=== PATIENT | female | born 1980 | race Caucasian/White ===

== ENCOUNTER 2018-12-17 08:39 | Emergency (ER) | payer BC ==
[2018-12-17] MEDS ORDERED: Ondansetron INJ* 2 MG/ML VIAL IV ONE (09:27)
[2018-12-17] MEDS ORDERED: NS 0.9% 1000 ML** 1,000 ML IV ONE (09:27)
[2018-12-17] MEDS ORDERED: Morphine VIAL* 10 MG/ML 1 ML VIAL IV ONE (09:27)
[2018-12-17] MEDS ORDERED: Ketorolac INJ* 30 MG/ML 1 ML VIAL IV PUSH ONE (09:27)
[2018-12-17 10:19] LABS: INR 0.86 (0.77-1.02)
[2018-12-17 11:01] LABS: ABS Basophils 0 10^3/ul (0-0.2); ABS Eosinophils 0 10^3/ul (0-0.6); ABS Monocytes 0.3 10^3/ul (0-0.8); ABS Neutrophils 11.7 10^3/ul (1.5-7.7); ABS Nucleated RBC 0 10^3/ul; Eosinophil % 0 %; Hematocrit 43 % (35-47); Hemoglobin 14.8 g/dl (12.0-16.0); Lymphocyte % 7.6 %; Mean Corpuscular HGB Conc 34 g/dl (31-36); Mean Corpuscular Hemoglobin 29 pg (27-31); Mean Corpuscular Volume 85 fL (80-97); Mean Platelet Volume 7.4 fL (7.4-10.4); Nucleated Red Blood Cells % 0; Platelet Count 235 10^3/ul (150-450); Red Blood Count 5.04 10^6/ul (4.00-5.40); Red Cell Distribution Width 14 % (10.5-15); White Blood Count 13.1 10^3/ul (3.5-10.8)
--- NOTE | 2018-12-17 11:19 | ED ---
Abdominal Pain/Female - HPI Summary HPI Summary: patient is an otherwise healthy 38-year-old female presenting to the ED with right-sided flank pain radiating to the right groin. This is associated with nausea and vomiting. Acute onset of symptoms early this morning and of remain persistent. She states the pain is 9/10, constant and cramping. She states she is unable to get a comfortable position. She has tried heat and Tylenol at home without good relief. She states she is also very dehydrated from several emesis episodes this morning. She denies any diarrhea or constipation. Denies abdominal surgical history. Patient is otherwise healthy, takes no medications , however has multiple allergies. She denies any urinary symptoms, specifically frequency, urgency or obstructive symptoms. Denies any gross hematuria. - History of Current Complaint Chief Complaint: EDAbdPain Stated Complaint: RIGHT SIDE ABD PAIN Time Seen by Provider: 12/17/18 09:06 Hx Obtained From: Patient ?: No Onset/Duration: Sudden Onset Timing: Constant Severity Initially: Severe Severity Currently: Severe Pain Intensity: 6 Pain Scale Used: 0-10 Numeric Location: Flank Radiates: No Character: Cramping, Colicy Aggravating Factor(s): Nothing Alleviating Factor(s): Nothing Associated Signs and Symptoms: Positive: Back Pain - Right-sided flank, Nausea. Negative: Fever, Cough, Blood in Stool, Urinary Symptoms, Vaginal Discharge, Vomiting - Risk Factors Ectopic Risk Factor: Negative Ovarian Torsion Risk Factor: Negative Allergies/Adverse Reactions: Allergies Allergy/AdvReac Type Severity Reaction Status Date / Time ampicillin Allergy Rash Verified 12/17/18 08:45 cefaclor [From Ceclor] Allergy GI Upset Verified 12/17/18 08:45 erythromycin base Allergy Rash Verified 12/17/18 08:45 [From Erythrocin] latex Allergy Rash Verified 12/17/18 08:45 sulfamethoxazole Allergy Rash Verified 12/17/18 08:45 [From Bactrim] trimethoprim [From Bactrim] Allergy Rash Verified 12/17/18 08:45 [facility] Allergy STOMACH Uncoded 10/10/12 12:37 PMH/Surg Hx/FS Hx/Imm Hx Previously Healthy: Yes Cardiovascular History: Denies: Hx Pacemaker/ICD Respiratory History: Reports: Hx Asthma Sensory History: Denies: Hx Hearing Aid Psychiatric History: Denies: Hx Panic Disorder - Cancer History Hx Chemotherapy: No Hx Radiation Therapy: No - Surgical History Surgery Procedure, Year, and Place: APPENDECTOMY- 1992; LAPARSCOPIC- ENDOMETRIOSIS - Immunization History Hx Pertussis Vaccination: No Immunizations Up to Date: Yes Infectious Disease History: No Infectious Disease History: Denies: Traveled Outside the [place] in Last 30 Days - Social History Occupation: Employed Full-time Lives: With Family Alcohol Use: Rare Hx Substance Use: No Substance Use Type: Reports: None Hx Tobacco Use: No Smoking Status (MU): Never Smoked Tobacco Review of Systems Negative: Fever, Chills, Fatigue, Skin Diaphoresis Negative: Palpitations, Chest Pain Negative: Shortness Of Breath, Cough Positive: Abdominal Pain, Vomiting, Nausea. Negative: Diarrhea Genitourinary: Negative Positive: no symptoms reported, see HPI Musculoskeletal: Negative Skin: Negative All Other Systems Reviewed And Are Negative: Yes Physical Exam Triage Information Reviewed: Yes Vital Signs On Initial Exam: Initial Vitals Temp Pulse Resp BP Pulse Ox 97.8 F 49 16 155/107 100 12/17/18 08:41 12/17/18 08:41 12/17/18 08:41 12/17/18 08:41 12/17/18 08:41 Vital Signs Reviewed: Yes Appearance: Positive: Pain Distress Skin: Positive: Warm, Skin Color Reflects Adequate Perfusion Head/Face: Positive: Normal Head/Face Inspection Eyes: Positive: EOMI, MILLICENT, Conjunctiva Clear Neck: Positive: Supple, No Lymphadenopathy Respiratory/Lung Sounds: Positive: Clear to Auscultation, Breath Sounds Present Cardiovascular: Positive: RRR, Pulses are Symmetrical in both Upper and Lower Extremities Abdomen Description: Positive: Soft, CVA Tenderness (R). Negative: CVA Tenderness (L), Guarding, McBurney's Point Tenderness, Peritoneal Signs, Pulsatile Mass, Splenomegaly Musculoskeletal: Positive: Normal, Strength/ROM Intact Neurological: Positive: Alert, Oriented to Person Place, Time Psychiatric: Positive: Normal, Affect/Mood Appropriate AVPU Assessment: Alert Diagnostics - Vital Signs Vital Signs Temp Pulse Resp BP Pulse Ox 12/17/18 09:38 22 12/17/18 08:41 97.8 F 49 16 155/107 100 - Laboratory Lab Results: Lab Results 12/17/18 12/17/18 Range/Units 08:55 10:53 WBC 13.1 H (3.5-10.8) 10^3/ul RBC 5.04 (4.00-5.40) 10^6/ul Hgb 14.8 (12.0-16.0) g/dl Hct 43 (35-47) % MCV 85 (80-97) fL MCH 29 (27-31) pg MCHC 34 (31-36) g/dl RDW 14 (10.5-15) % Plt Count 235 (150-450) 10^3/ul MPV 7.4 (7.4-10.4) fL Neut % (Auto) 89.7 % Lymph % (Auto) 7.6 % [place] % (Auto) 2.5 % Eos % (Auto) 0 % Baso % (Auto) 0.2 % Absolute Neuts (auto) 11.7 H (1.5-7.7) 10^3/ul Absolute Lymphs (auto) 1.0 (1.0-4.8) 10^3/ul Absolute Monos (auto) 0.3 (0-0.8) 10^3/ul Absolute Eos (auto) 0 (0-0.6) 10^3/ul Absolute Basos (auto) 0 (0-0.2) 10^3/ul Absolute Nucleated RBC 0 10^3/ul Nucleated RBC % 0 INR (Anticoag Therapy) 0.86 (0.77-1.02) Result Diagrams: 12/17/18 10:53 12/17/18 10:53 Lab Statement: Any lab studies that have been ordered have been reviewed, and results considered in the medical decision making process. Abdominal Pain Fem Course/Dx - Course Course Of Treatment: During this course of treatment, the patient is evaluated for likely right-sided kidney stone. CT obtained which shows a 0.2 cm right- sided stone with hydronephrosis at the UVJ. She is given Toradol, morphine and Zofran with good relief. Urine obtained. No obvious infection. She will be discharged with urine strainer, Zofran and Natoma. she will follow up with urology if symptoms persist or worsen. She is to return to the ED if she does not pass a stone or any symptoms get worse. She understands return precautions. She is okay for discharge at this time. - Diagnoses Differential Diagnosis: Positive: Renal Colic, Urinary Tract Infection Provider Diagnoses: Nephrolithiasis Discharge - Sign-Out/Discharge Documenting (check all that apply): Patient Departure - Discharge Plan Condition: Stable Disposition: HOME Prescriptions: HYDROcodone/ACETAMIN 5-325 MG* [Natoma 5-325 TAB*] 1 tab PO Q6H PRN #12 tab MDD 8 PRN Reason: Pain Ondansetron ODT TAB* [Zofran 4 MG Odt TAB*] 4 mg PO Q6H PRN #12 tab.odt MDD 4 PRN Reason: Nausea Patient Education Materials: Kidney Stones (ED), How to Strain Your Urine (ED) Referrals: Malick Lopez MD [Primary Care Provider] - Alexx Haddad MD [Medical Doctor] - Additional Instructions: If you develop any worsening symptoms, please return to the ED or follow-up with urology Please strain your urine, this will sure you have passed the stone Stone is passed when you no longer feel discomfort I have given your pain medication for at home for relief You may take ibuprofen 600ng 3 times daily in addition to the pain control Heat to the area may help with some discomfort I have also given you nausea medication - Billing Disposition and Condition Condition: STABLE Disposition: Home
[2018-12-17 11:39] LABS: ALT 13 U/L (7-52); AST 16 U/L (13-39); Albumin 4.2 g/dL (3.2-5.2); Albumin/Globulin Ratio 1.2 (1-3); Alkaline Phosphatase 53 U/L (34-104); Amylase 65 U/L (29-103); Anion Gap 8 mmol/L (2-11); BUN/Creatinine Ratio 14.6 (8-20); Blood Urea Nitrogen 14 mg/dL (6-24); C Reactive Protein 5.35 mg/L (<8.01); CO2 Carbon Dioxide 26 mmol/L (22-32); Calcium 9.4 mg/dL (8.6-10.3); Chloride 103 mmol/L (101-111); EGFR African American 77.9 (>60); EGFR Non-African American 64.4 (>60); Globulin 3.5 g/dL (2-4); Glucose 105 mg/dL (70-100); Potassium 3.9 mmol/L (3.5-5.0); Sodium 137 mmol/L (135-145); Total Protein 7.7 g/dL (6.4-8.9)
[2018-12-17 11:45] LABS: HCG Pregnancy < 0.60 mIU/mL
[2018-12-17 11:48] LABS: Urine Appearance Cloudy; Urine Bacteria Absent (Absent); Urine Bilirubin Negative (Negative); Urine Blood 1+ (Negative); Urine Color Yellow; Urine Glucose Negative (Negative); Urine Ketones 1+ (Negative); Urine Nitrite Negative (Negative); Urine Protein Negative (Negative); Urine Red Blood Cell 1+(3-5/hpf) (Absent); Urine Specific Gravity 1.026 (1.010-1.030); Urine Squamous Epithelial Cell Present (Absent); Urine Urobilinogen Negative (Negative); Urine White Blood Cell Trace(0-5/hpf) (Absent)
[2018-12-17 12:29] VITALS: BP 153/96
== END 2018-12-17 12:29 | disposition home or self-care (01) ==
LOC: ED 08:39
DX: N13.2 Hydronephrosis with renal and ureteral calculous obstruction (principal); Z88.2 Allergy status to sulfonamides; Z88.1 Allergy status to other antibiotic agents; Z91.040 Latex allergy status; Z88.0 Allergy status to penicillin; Z91.013 Allergy to seafood
CPT/HCPCS: 36415; 74176; 80053; 81003; 81015; 82150; 83605; 83690; 83735; 84702; 85025; 85610; 86140; 87086; 96361; 96374; 96375; 99284; J1885; J2270; J2405